=== PATIENT | male | born 1935 | race Caucasian/White ===

== ENCOUNTER → 2020-04-14 | Outpatient (CLI) | payer OTHER ==
[~2020-04-14] MED LIST: ADULT LOW DOSE81 MG; CALCIUM; FERRO-TIME325 MG; FISH OIL 500 M1 EACH; GLUCOPHAGE1000 MG; HYTRIN10 MG; LEVOTHROID; LISINOPRIL20 MG; LOPRESSOR; LORATIDINE 10 M10 M1; MULTIVITAMINS; NAPROSYN500 MG; NITROGLYCERIN0.4 MG; ZOCOR 20 MG TAB20 M1
== END ==
LOC: CAT 12:25
PROVIDERS: ATTEND Family Medicine
DX: I67.89 Other cerebrovascular disease (principal)

== ENCOUNTER 2020-04-18 11:24 | Inpatient (IN) | payer OTHER ==
[~2020-04-18] VITALS: Ht 165.1 cm; Wt 79.4 kg
[2020-04-18 11:48] VITALS: BP 126/64
[2020-04-18 12:44] LABS: ABSOLUTE NEUTROPHILS 2.8 thou/uL (1.4-8.2); BASOPHILS 0.7 % (0.0-2.0); EOSINOPHILS 3.6 % (0.0-3.0); HEMATOCRIT 41.5 % (42.0-52.0); HEMOGLOBIN 13.8 gm/dL (14.0-18.0); LYMPHOCYTES 26.9 % (24.0-44.0); MCH 31.3 pg (26.0-34.0); MCHC 33.3 g/dL (28.0-37.0); MCV 94.1 fL (80.0-100.0); MONOCYTES 7.7 % (1.0-8.0); PLATELET COUNT 149 thou/uL (150-400); POLYS 61.1 % (36.0-66.0); RBC 4.42 mil/uL (4.50-6.00); RDW 14.2 % (10.5-14.5); WBC 4.6 thou/uL (4.0-11.0)
[2020-04-18 13:12] LABS: URINE BILIRUBIN NEGATIVE (Negative); URINE BLOOD NEGATIVE (Negative); URINE CLARITY CLEAR; URINE COLOR YELLOW; URINE GLUCOSE-RANDOM* 1+ (Negative); URINE KETONES NEGATIVE (Negative); URINE LEUKOCYTES-REFLEX TRACE (Negative); URINE NITRITE-REFLEX NEGATIVE (Negative); URINE PROTEIN (DIPSTICK) NEGATIVE (Negative); URINE SPECIFIC GRAVITY 1.025 (1.005-1.035); URINE UROBILINOGEN 0.2 E.U./dl (0.2-1.0)
[2020-04-18 13:21] LABS: ANION GAP 8 mmol/L (7-16); BUN 12 mg/dL (7-18); CALCIUM 7.8 mg/dL (8.5-10.1); CHLORIDE 101 mmol/L (98-107); CO2 27 mmol/L (21-32); GLUCOSE 226 mg/dL (74-106); POTASSIUM 3.4 mmol/L (3.5-5.1); SODIUM 136 mmol/L (136-145)
[2020-04-18 13:30] LABS: SGOT 19 U/L (15-37); SGPT 23 U/L (16-63); TOTAL BILIRUBIN 0.6 mg/dL (0.2-1.0); TOTAL PROTEIN 6.2 g/dL (6.4-8.2); TROPONIN-I <0.06 ng/mL (<0.06)
[2020-04-18 14:24] LABS: FOLIC ACID 42.7 ng/mL (8.6-58.9)
[2020-04-18 17:38] VITALS: BP 160/80
[2020-04-18 18:33] VITALS: BP 161/81
[2020-04-18 19:42] VITALS: BP 146/77
[2020-04-18 19:43] VITALS: BP 116/80
--- NOTE | 2020-04-18 20:27 | NUR ---
PT ARRIVED AT 1840. PAPERWORK SIGNED. INFORMATION GIVEN /TAUGHT ON PAMPHLET. LFA IV. PROBLEMS WITH VERTIGO, TWO UNWITNESSED FALLS. PT FINDS HIMSELF ON THE FLOOR IN THE MORNING. BED ALARM ON. SBA.
--- NOTE | 2020-04-18 23:55 | NUR ---
ASSUMED PT CARE AT 1900, PT IS AWAKE, ALERT AND ORIENTED, DENIES CONCERNS, ADMISSION ASSESSMENT AND HX DONE AND CHARTED, VSS, SR ON THE MONITOR, ASSESSMENTS CHARTED, MEDS GIVEN PER APR, NO ACUTE DISTRESS NOTED, WILL CONTINUE TO MINITOR AND FOLLOW POC
[2020-04-19 01:23] VITALS: BP 147/62
[2020-04-19 03:06] LABS: GLYCOHEMOGLOBIN (HGB A1C) 6.7 % (4.8-5.6)
[2020-04-19 05:38] VITALS: BP 127/60
[2020-04-19 06:02] LABS: CALCIUM 7.9 mg/dL (8.5-10.1); MAGNESIUM 1.4 mg/dL (1.8-2.4)
[2020-04-19 07:15] VITALS: BP 136/58
[2020-04-19 11:45] VITALS: BP 139/67
--- NOTE | 2020-04-19 12:25 | NUR ---
Case opened to follow for dc planning. Chart reviewed and cm assessment completed with the pt at bedside. He is a&ox4 and indicates he lives indep with his in their two story home. Due to increased dizziness and several episodes of having to lower himself to the ground vs falling; he relies on his dtr for transportation and has been using his rwalker more the past few weeks. He is normally indep and does have a cane and rwalker to use as needed. He lives with his who has chronic health issues and is on home oxygen. He notes that she sleeps in her recliner and is able to get around the home with her oxygen. Their dtr does live close by and helps as needed. Cm role introduced. He is familiar with HH as his had [facility] last year. He would want to use them if needed at dc;however he does not feel he will need any hh f/u. He just wants to know what's causing these "spells". PT/OT are evaluating the pt. Will follow along should HH be recommended at dc.
--- NOTE | 2020-04-19 13:03 | NUR ---
PT'S HAD CALLED, RN SPOKE BREIFLY BUT WAS IN A PT' ROOM SO TOLD THE THAT RN WOULD CALL BACK. RN TRIED REACHING OUT THREE TIMES BUT ALL THREE OCCASIONS PT'S WOULD GO STRAIGHT TO END TONE. WILL TRY AGAIN IN A BIT
[2020-04-19 17:00] VITALS: BP 139/67
[2020-04-19 21:06] VITALS: BP 146/64
--- NOTE | 2020-04-20 05:19 | NUR ---
PATIENTS CARES WERE ASSUMED AT SHIFT CHANGE. PATIENT WAS ASSESSED AND MEDS WERE PASSED.PATIENTS IS UP IN THE CHAIR DURING THE DAY. PATIENT DOES CALL APPROPRIATE. PATIENT DID SLEEP THE MAJORITY OF THIS SHIFT. ROUNDING WAS DONE. THE BED IS IN A LOW AND LOCKED POSITION
[2020-04-20 06:16] VITALS: BP 129/54
[2020-04-20 07:35] VITALS: BP 132/55
[2020-04-20 11:30] VITALS: BP 138/69
--- NOTE | 2020-04-20 11:31 | 2DMMODE ---
[facility] [place] [address] 2 D/M-MODE ECHOCARDIOGRAM Name: JANET HASSAN Nghia Room #: 217-P ADM IN M.R.#: [id number] Admission: 04/18/20 Attend Phys: Emil Billingsley MD Discharge: Date of : 39 Report #: [id number] THIS REPORT FOR: cc: Rony Jones James A. DO Santiago, Patrick MD [facility] ~ APPROVED REPORT Study performed: 04/20/2020 10:37:25 EXAM: Comprehensive 2D, Doppler, and color-flow Echocardiogram Patient Location: Bedside Room #: 217 Status: routine BSA: 1.91 HR: 53 bpm BP: 132/55 mmHg Rhythm: Sinus arrhythmia Other Information Study Quality: Adequate Indications Dizziness. Hx: CAD, stent, dm. 2D Dimensions RVDd: 33.69 mm IVSd: 12.22 (7-11mm) LVOT Diam: 20.50 (18-24mm) LVDd: 49.22 mm PWd: 11.43 (7-11mm) Ascending Ao: 33.43 (22-36mm) LVDs: 29.42 (25-40mm) Aortic Root: 34.49 mm Volumes Left Atrial Volume (Systole) Single Plane 4CH: 62.79 mL Single Plane 2CH: 67.87 mL LA ESV Index: 36.00 mL/m2 Aortic Valve AoV Peak Vinayak.: 2.08 m/s AO Peak Gr.: 17.32 mmHg LVOT Max P.40 mmHg AO Mean Gr.: 8.99 mmHg AO V2 Mean: 1.42 m/s LVOT Max V: 1.27 m/s [facility] [email or web address] [address] 2 D/M-MODE ECHOCARDIOGRAM Name: JANET HASSAN Room #: 217-[facility] IN [facility].#: [id number] Admission: 04/18/20 Attend Phys: Veena Maria Discharge: Date of : 39 Report #: [id number] AO V2 VTI: 49.93 cm CHRYSTAL Vmax: 2.01 cm2 AI Vmax: 3.68 m/s AI Charlotte: 1.80 m/s2 AI PHT: 593.37 ms Mitral Valve E/A Ratio: 0.8 MV Decel. Time: 227.81 ms MV E Max Vinayak.: 0.71 m/s MV A Vinayak.: 0.84 m/s MV PHT: 66.06 ms IVRT: 92.27 ms Pulmonary Valve PV Peak Vinayak.: 1.20 m/s PV Peak Gr.: 5.75 mmHg Pulmonary Vein P Vein S: 0.82 m/s P Vein D: 0.66 m/s P Vein S/D Ratio: 1.24 Tricuspid Valve TR Peak Vinayak.: 2.48 m/s RAP Estimate: 5.00 mmHg TR Peak Gr.: 25.00 mmHg PA Pressure: 30.00 mmHg Left Ventricle The left ventricle is normal size. There is normal LV segmental wall motion. There is normal left ventricular wall thickness. Left ventricular systolic function is normal. LVEF is 60-65%. Mild diastolic dysfunction is present (impaired relaxation pattern). Right Ventricle The right ventricle is normal size. The right ventricular systolic function is normal. Atria Left atrium is mildly dilated. The right atrium size is normal. Aortic Valve Aortic valve is calcified. Mild aortic regurgitation. There is no aortic valvular stenosis. [facility] [address] [place] [address] 2 D/M-MODE ECHOCARDIOGRAM Name: JANET HASASN Nghia Room #: 217-P [facility] IN .R.#: [id number] Admission: 04/18/20 Attend Phys: Veena Maria Discharge: Date of : 39 Report #: [id number] Mitral Valve The mitral valve is normal in structure. Trace mitral regurgitation. No evidence of mitral valve stenosis. Tricuspid Valve The tricuspid valve is normal in structure. Trace tricuspid regurgitation. Estimated PAP is 30mmHg. Pulmonic Valve The pulmonary valve is normal in structure. Trace pulmonic regurgitation. Great Vessels The aortic root is normal in size. The ascending aorta is normal in size. IVC is normal in size and collapses >50% with inspiration. Pericardium There is no pericardial effusion. <Conclusion> Normal left ventricular size/wall thickness Ejection fraction 60% Grade 1 diastolic dysfunction Abnormal right ventricular size/function Mild left atrial enlargement Mild aortic valve calcification without stenosis Mild aortic valve insufficiency Normal mitral valve structure and function Trace tricuspid valve insufficiency Pulmonary artery systolic pressure estimated at 30 mmHg No pericardial effusion <ELECTRONICALLY SIGNED> By: Rachid Vogt MD, FACC 04/20/20 1131 113 1131 Rachid Vogt MD, FACC /INF
[2020-04-20] MEDS ORDERED: PROTONIX 20 MG20 M1 PO (14:27)
[2020-04-20] MEDS ORDERED: MECLIZINE HCL25 M1 PO (14:31)
[2020-04-20 14:33] VITALS: BP 138/69
--- NOTE | 2020-04-20 14:39 | NUR ---
PT TO BE DISCHARGED HOME TODAY. NEUROLOGICALLY INTACT. AFIB CONTROLLED. ENT IS TO SEE THE PT OUTPATIENT. PT AFEBRILE, ADEQUATE UOP, NO BM, ADEQUATE APPETITE. PT HAS BEEN UPDATED AND EDUCATED ON CONDITION AND POC. PT PROGRESSING TOWARDS POC.
[2020-04-20 15:34] VITALS: BP 138/69
--- NOTE | 2020-04-20 15:35 | NUR ---
Pt dc'd to home today with outpt f/u. No hh referral made as pt declined referral.
--- NOTE | 2020-04-21 10:53 | HC ---
[facility] [place] [address] CONSULTATION Name: JANET HASSAN Room #: 217-P [facility] IN M.R.#: [id number] Admission: 04/18/20 Attend Phys: Emil Billingsley MD Discharge: 04/20/20 Date of : 39 Report #: [id number] THIS REPORT FOR: cc: Rony Jones James A. DO Khosla, Parveen K. MD ~ DATE OF SERVICE: 04/18/2020 HISTORY OF PRESENT ILLNESS: This is an 85-year-old male patient who was evaluated by me for dizziness. I talked to Emergency Room physician and as I understand, this patient had dizziness starting about a couple of weeks ago, it has fluctuated. Sometime he had dizziness and after sometime he has nausea. He was noticed to be ataxic, couple of times he vomited a few days ago. He has tinnitus for several years. He also complained of some nonspecific symptom in the right eye. REVIEW OF SYSTEMS: Positive for multiple problems, which is summarized in the patient's note. He has a history of diabetes. He said his blood sugar was 101. He has a history of coronary artery disease with stents. He states he has arthritis, hyperlipidemia, hypothyroidism. He was seen as an outpatient by his PCP for these symptoms and he was given meclizine. He does have a history of prostatic hypertrophy and a cholecystectomy. He is not complaining of any new eye, cardiac, respiratory, , musculoskeletal, constitutional, dermatological, hematological, psychiatric, throat, allergic symptom associated with present symptomatology. PAST MEDICAL HISTORY: Negative for these kind of spells, but does have tinnitus. FAMILY HISTORY: Unremarkable. SOCIAL HISTORY: He does not smoke or drink any alcohol. PHYSICAL EXAMINATION: Indicate he is alert, responsive, able to follow simple and complex command. His speech, concentration, fund of knowledge and memory is unremarkable. Cranial nerve examination 2-12 does not appear to be showing any definite abnormality. I do not see any nystagmus. He has unremarkable strength, sensation, reflexes and tone in all 4 extremities. His reflexes actually are somewhat diminished in the lower extremities as expected with diabetes, but his position sense is intact. Cpclup-tp-[id number] looks unremarkable. I could not look at the patient's fundus. There is no meningeal sign. Pulses are palpable. There is no edema. There is no cyanosis. He is reasonably well-built individual who does not have any dysmorphic features of eyes, ears and face. His blood pressure is 116/80, pulse is 78 and temperature is 97.4. [address] [address] CONSULTATION Name: JANET HASSAN Nghia Room #: [address] [place] [address] [place] ..#: [id number] Admission: 04/18/20 Attend Phys: Emil Billingsley MD Discharge: 04/20/20 Date of : 39 Report #: [id number] LABORATORY DATA: His white count is 4.6. Potassium is a trace low, but the blood sugar is 226. IMAGING STUDIES: He did have an MRI and actually have an MRI of the brain at [facility]. I have to the Emergency Room doctor and discussed with them that we can do it with contrast, if he understands the potential complication from the contrast. He agreed for MRI with contrast, which was done and was unremarkable. MRA is also unremarkable. IMPRESSION: So far, there is no etiology, which can explain the patient's symptoms from central nervous system perspective. With associated tinnitus and ear symptoms, I think the possibility of ENT pathology as well as systemic pathology, need to be considered and I will suggest working her up for that. If no pathology is there, which can explain the patient's symptoms, then neurological issues can be readdressed. Thank you very much for this referral and if you have any question, please feel free to contact me. <ELECTRONICALLY SIGNED> By: Tera Zaragoza MD 04/21/20 1053 [id number] 32 Tera Zaragoza MD /nt
== END 2020-04-20 15:23 | disposition home or self-care (01) | DRG 74 ==
LOC: ER 11:24 → 2N 13:55 → EROBS 13:55 → 2N 18:55
PROVIDERS: Emergency Medicine; Nurse Practitioner; ADMIT Hospitalist; ATTEND Hospitalist
DX: G90.8 Other disorders of autonomic nervous system (principal); E44.0 Moderate protein-calorie malnutrition; R27.0 Ataxia, unspecified; E87.6 Hypokalemia; E11.9 Type 2 diabetes mellitus without complications; E83.42 Hypomagnesemia; I25.10 Atherosclerotic heart disease of native coronary artery without angina pectoris; M19.90 Unspecified osteoarthritis, unspecified site; E78.5 Hyperlipidemia, unspecified; D69.6 Thrombocytopenia, unspecified; E03.9 Hypothyroidism, unspecified; Z66 Do not resuscitate; R53.81 Other malaise; N40.0 Benign prostatic hyperplasia without lower urinary tract symptoms; Z90.49 Acquired absence of other specified parts of digestive tract; Z88.0 Allergy status to penicillin; Z95.5 Presence of coronary angioplasty implant and graft
CPT/HCPCS: 10081